=== PATIENT | female | born 1975 | race Two or more races ===

== ENCOUNTER 2025-06-23 09:06 | Emergency (ER) | payer OTHER ==
[~2025-06-23] VITALS: Ht 167.6 cm; Wt 87.5 kg
[2025-06-23] MEDS ORDERED: PEPCID AC20 MG PO (10:42)
[2025-06-23] MEDS ORDERED: LISINOPRIL (10:43)
[2025-06-23] MEDS ORDERED: 0.9 % SODIUM CHLORIDE 1,000 ML IV ONE (11:00)
[2025-06-23] MEDS ORDERED: ONDANSETRON HCL 2 MG/ML VIAL IV ONE ×2 (11:00→15:45)
[2025-06-23] MEDS ORDERED: FAMOTIDINE/PF 20 MG/2 ML VIAL IV ONE (11:00)
[2025-06-23] MEDS ORDERED: ONDANSETRON HCL 2 MG/ML VIAL ONE ×2 (11:10→16:03)
[2025-06-23] MEDS ORDERED: FAMOTIDINE/PF 20 MG/2 ML VIAL ONE (11:10)
[2025-06-23 12:18] LABS: URINE APPEARANCE Clear; URINE BILIRRUBIN Negative (NEGATIVE); URINE BLOOD NHT; URINE COLOR Yellow; URINE GLUCOSE Negative (NEGATIVE); URINE KETONE Negative (NEGATIVE); URINE LEUKOCYTE Small; URINE NITRATE Negative; URINE PROTEIN Negative (NEGATIVE); URINE UROBILINOGEN 0.2 E.U./dl
[2025-06-23 12:19] LABS: BASO % 0.2 % (0.1-1.2); EOS # 0.01 (0.04-0.54); EOS % 0.1 % (0.7-7.0); LYMPH # 0.34 (1.18-3.74); LYMPH % 3.0 % (19.3-53.1); MEAN PLATELET VOLUME 11.10 fl (9.4-12.4); MONO # 0.40 (0.24-0.82); MONO % 3.5 % (4.7-12.5); NEUT # 10.67 (1.56-6.13); NEUT % 92.9 % (34.0-71.1); RED CELL DISTRIBUTION WIDTH 12.7 % (11.6-14.4)
[2025-06-23 12:21] LABS: URINE BACTERIA 364.8 uL (0.0-1933); URINE EPITHELIAL CELLS 26.2 uL (0.0-38.8); URINE RBC 25.2 uL (0.0-20.8); URINE WBC 9.9 uL (0.0-23.2)
[2025-06-23 12:26] LABS: URINE CAST 0.00 uL (0.0-1.40)
[2025-06-23 12:35] LABS: COVID-19 AG NEGATIVE (NEGATIVE)
[2025-06-23 13:30] LABS: INR 1.05
[2025-06-23 13:33] LABS: ALT/SGPT 44.0 U/L (12-78); AST/SGOT 31.0 U/L (15-37); BILIRUBIN TOTAL 0.61 mg/dL (0.3-1.2); BUN CREA RATIO 21.0 (7.0-25.0); CREATININE SERUM 0.7 mg/dL (0.55-1.02); GFR 88.22; GLOBULINA 3.3 G/DL (2.4-3.5); GLUCOSE FASTING 111.0 mg/dL (65-100); OSMOLALITY SERUM 279.0 MOSM/KG (275-295)
[2025-06-23] MEDS ORDERED: KETOROLAC TROMETHAMINE 30 MG VIAL IV ONE (15:45)
[2025-06-23] MEDS ORDERED: KETOROLAC TROMETHAMINE 30 MG VIAL ONE (16:03)
[2025-06-23] MEDS ORDERED: INTESTINEX680 M1 PO (16:39)
[2025-06-23] MEDS ORDERED: ZOFRAN8 MG PO (16:39)
[2025-06-23] MEDS ORDERED: 8 HOUR PAIN RE650 M1 PO (16:39)
[2025-06-23] MEDS ORDERED: PROTONIX40 MG PO (16:39)
== END 2025-06-23 16:54 | disposition home or self-care (01) ==
LOC: ER 09:06
DX: K52.89 Other specified noninfective gastroenteritis and colitis (principal); R11.10 Vomiting, unspecified; Z20.822 Contact with and (suspected) exposure to COVID-19; I10 Essential (primary) hypertension